=== PATIENT | female | born 1985 | race African-American/Black ===

== ENCOUNTER 2023-12-17 16:22 | Emergency (ER) | payer BC, SELFPAY ==
--- NOTE | ~2023-12-17 | US_ITS ---
EXAMINATION: US OB transvaginal INDICATION: abdominal pain TECHNIQUE: Sonography of the pelvis was performed by transabdominal and transvaginal techniques. COMPARISON: None. RESULT: Uterus: 9.5 x 4.4 x 6.1 cm. Anteverted. 2.2 cm inferior fibroids to the left of midline. Intrauterine gestational sac: Single present. Yolk sac: 0.26 cm . Embryo: Single present. [place] rump length: 0.22 cm, corresponding gestational age 5 weeks, 5 days. Gestational heart rate: present 103 bpm. Subgestational hematoma: Absent . Right ovary: 2.9 x 2.4 x 2.4 cm. Vascular flow is present. Corpus luteal cyst. Left ovary: 2.5 x 1.5 x 1.6 cm. Vascular flow is present. No adnexal mass. Pelvis free fluid: None. IMPRESSION: Single, live intrauterine gestation. Estimated Gestational Age: 5 weeks, 5 days by crown rump length. NATHAN by ultrasound 08/13/2024. Reviewed, dictated and finalized at location [facility]. IMPRESSION: Single, live intrauterine gestation. Estimated Gestational Age: 5 weeks, 5 days by crown rump length. NATHAN by ultras ound 08/13/2024.
[2023-12-17 16:45] VITALS: BP 116/77; PULSE 75; RESP 16; TEMP 37.2; O2SAT 100
--- NOTE | 2023-12-17 17:59 | ED.ABDPAIN ---
HPI - Abdominal Pain General Chief Complaint: Abdominal Pain Stated Complaint: constipation Time Seen by Provider: 12/17/23 17:42 History of Present Illness HPI narrative: Patient is a 38-year-old female, last menstrual period November 09, 2023 here with abdominal pain and bloating. She notes that her pain began about 4 days ago. She states that throughout the weekend she has been in bed due to increasing abdominal pain. She states it comes in waves and makes her bend over due to the pain. She has had decreased appetite all weekend and stayed in bed for most of the day. She denies any fever chills. Her last bowel movement was about 4 days ago. She notes she typically has 2-3 bowel movements each week. Normal she has not taken any medication to help with bowel movements. She denies any vaginal bleeding or discharge. She is unsure what her blood type is. She does note that during prior pregnancies she has had vaginal bleeding similar to a menstrual cycle so she is unsure of how far along she may be. No urinary symptoms. Related Data Allergies Allergy/AdvReac Type Severity Reaction Status Date / Time No Known Allergies Allergy Verified 12/17/23 16:46 Review of Systems Review of Systems: All systems reviewed & are unremarkable except as noted in HPI and below Exam Narrative: GENERAL: Well-appearing, well-nourished, and in no acute distress. HEAD: Normocephalic, atraumatic. EYES: PERRLA and EOMI. ENT: Nares clear. Mucous membranes moist. NECK: Supple. CHEST: Clear to auscultation. No respiratory distress. HEART: Regular rate and rhythm. Normal peripheral pulses. ABDOMEN: Soft, suprapubic tenderness, no rebound or guarding. No CVA tenderness. EXTREMITIES: Normal range of motion. No edema. SKIN: Warm, dry, no rash. NEURO: No focal deficits. Alert and oriented x3. PSYCH: Normal mood and affect. Course Course Emergency Course: Chart review performed. Patient here with constipation and abdominal pain. Last BM Saturday. Triage vitals normal. No prior visits. Patient seen evaluated, nontoxic appearing. Complaining of some abdominal pains and decreased appetite over the weekend. Her last bowel movement was about 4 days ago. She does have a positive test. Will add on hCG as well as transvaginal ultrasound and type and screen to evaluate RH factor. She does not have prior type and screen in our system. Ultrasound ordered to rule out ectopic , ultrasound team notified. HCG 40,578, gonorrhea, chlamydia, Trichomonas negative. UA negative for UTI. Ultrasound shows a single live intrauterine gestation estimated age 5 weeks and 5 days by crown-rump length. Patient is blood type B positive. Will start patient on vitamins and MiraLax. The results of pertinent diagnostic studies and exam findings were discussed. The patient?s provisional diagnosis and plan of care were discussed with the patient and present family. The patient and/or present family expressed understanding of the diagnosis and plan. The nurse was instructed to provide written instructions and appropriate follow-up information. The patient understands their need and responsibility to obtain additional follow-up as instructed. The risks of medications administered and prescribed were discussed with the patient and family present. Vital Signs Vital signs: Vital Signs Temperature 99 F 12/17/23 16:45 Pulse Rate 75 12/17/23 16:45 Respiratory Rate 16 12/17/23 16:45 Blood Pressure 116/77 12/17/23 16:45 Pulse Oximetry 100 12/17/23 16:45 Temperature 99 F 12/17/23 16:45 Pulse Rate 75 12/17/23 16:45 Respiratory Rate 16 12/17/23 16:45 Blood Pressure 116/77 12/17/23 16:45 Pulse Oximetry 100 12/17/23 16:45 MDM - Abdominal Pain Lab Data 12/17/23 17:54 12/17/23 17:54 Labs: Lab Results 12/17/23 12/17/23 12/17/23 Range/Units 17:54 17:54 20:08 WBC 6.4 (4.5-10.0) K/
[2023-12-17 18:02] LABS: Basophils Percent Auto 0.5 % (0.2-1.2); Eosinophils Absolute Auto 0.1 K/mm3 (0-0.3); Eosinophils Percent Auto 0.8 % (0-4.4); Hematocrit 37.3 % (37.0-47.0); Hemoglobin 11.6 g/dL (12.0-15.0); Immature Granulocyte Absolute 0.02 K/mm3 (0.00-0.031); Immature Granulocyte Percent A 0.3 % (0-0.5); Lymphocytes Absolute Auto 2.91 K/mm3 (0.9-3.2); Lymphocytes Percent Auto 45.7 % (18.3-44.2); Mean Corpuscular HGB Conc 31.1 g/dl (32-36); Mean Corpuscular Hemoglobin 23.7 pg (26-34); Mean Corpuscular Volume 76.3 fl (80-100); Mean Platelet Volume 10.2 fl (7.4-10.4); Monocytes Absolute Auto 0.4 K/mm3 (0.1-0.6); Monocytes Percent Auto 6.8 % (2.6-8.5); Neutrophils Absolute Auto 2.9 K/mm3 (1.3-6.7); Neutrophils Percent Auto 45.9 % (45.5-73.1); Platelet Count Result 271 k/mm3 (150-375); Red Blood Count 4.89 M/mm3 (4.2-5.4); Red Cell Distribution Width 15.4 % (11.5-14.5); White Blood Count 6.4 K/mm3 (4.5-10.0)
[2023-12-17 18:04] LABS: Appearance Urine Clear (Clear); Bilirubin Urine Negative (Negative); Blood Urine Negative (Negative); Color Urine Yellow (Yellow); Glucose Urine UA Negative (Negative); Ketones Urine Trace mg/dL (Negative); Leukocyte Esterase Ur Negative LEU/UL (Negative); Nitrate Urine Negative (Negative); Protein Urine Negative (Negative); Specific Grav Ur 1.027 (1.001-1.035)
[2023-12-17 18:10] LABS: Add Urine Microscopic? NO
[2023-12-17 18:14] LABS: Alanine Aminotransferase 16 U/L (6-35); Albumin Level 4.5 g/dL (3.5-5.1); Alkaline Phosphatase 36 U/L (38-126); Anion Gap 8 mmol/L (4-12); Aspartate Amino Transferase 30 U/L (14-36); Bilirubin,Total 0.7 mg/dL (0.2-1.3); Blood Urea Nitrogen 6 mg/dL (7-17); Calcium 9.2 mg/dL (8.4-10.2); Carbon Dioxide 21 mmol/L (22-30); Chloride 110 mmol/L (98-107); Estimated CRCL calculation 95 ml/min; Estimated Glomerular Filt Rate > 60; Glucose 83 mg/dL (65-110); Lipase 70 U/L (23-300); Potassium 3.9 mmol/L (3.4-5.0); Sodium 139 mmol/L (137-145)
--- NOTE | 2023-12-17 19:26 | PC.NURSE ---
pt in ultrasound at this time.
[2023-12-17 20:35] LABS: Trichomonas Vag PCR NOT DETECTED (NOT DETECTE)
[2023-12-17 20:59] LABS: Chlamydia trachomatis NOT DETECTED (NOT DETECTE); Neisseria gonorrhoeae PCR NOT DETECTED (NOT DETECTE)
== END 2023-12-17 21:16 | disposition home or self-care (01) ==
PROVIDERS: Emergency Medicine; Emergency Provider Student in an Organized Health Care Education/Training Program
DX: O99.611 Diseases of the digestive system complicating pregnancy, first trimester (principal); K59.00 Constipation, unspecified; O09.521 Supervision of elderly multigravida, first trimester; Z3A.01 Less than 8 weeks gestation of pregnancy
CPT/HCPCS: 36415; 76817; 80053; 81003; 81025; 83690; 84702; 85025; 86850; 86900; 86901; 87491; 87591; 87661; 99284

== ENCOUNTER 2024-06-23 22:00 | Emergency (ER) | payer BC, SELFPAY ==
[2024-06-23 22:02] VITALS: BP 107/62; PULSE 75; RESP 16; TEMP 36.6; O2SAT 100
[2024-06-24 00:30] LABS: BEDSIDEPREGUCG Positive (Negative)
--- NOTE | 2024-06-24 00:55 | ED.FEMALEGU ---
HPI - Female Genitourinary General Chief complaint: Urogenital-Female Stated complaint: pressure with urinating suspected UTI Time Seen by Provider: 06/24/24 00:21 Source: patient Mode of arrival: ambulatory Limitations: no limitations History of Present Illness HPI Narrative: This is a 39-year-old female that presents to the emergency department for dysuria. Ongoing since yesterday. Reports urinary frequency. Denies fevers, flank pain, hematuria, vomiting. Related Data Allergies Allergy/AdvReac Type Severity Reaction Status Date / Time No Known Allergies Allergy Verified 06/23/24 22:01 Review of Systems Review of Systems: CONSTITUTIONAL: Denies fever, GASTROINTESTINAL: Denies abdominal pain, nausea, vomiting GENITOURINARY: Reports dysuria. Denies hematuria. All systems reviewed & are unremarkable except as noted in HPI and below PMFSH Past Medical History Medical History (Updated 06/24/24 @ 02:24 by Yanira Mora PA-C) No active medical problems Social History Social History (Updated 06/24/24 @ 00:57 by Yanira Mora PA-C) Smoking status: Never smoker Exam Narrative: GENERAL: Well-appearing, well-nourished, and in no acute distress. HEAD: Normocephalic, atraumatic. EYES: EOMI. CHEST: Clear to auscultation. No respiratory distress. No wheezes rales or rhonchi HEART: Regular rate and rhythm. No murmur heard. Normal peripheral pulses. ABDOMEN: Soft, nontender, nondistended, normal active bowel sounds. EXTREMITIES: Normal range of motion. No edema. SKIN: Warm, dry, no rash. NEURO: No focal deficits. Alert and oriented x3. PSYCH: Normal mood and affect Course Course Emergency Course: Patient updated on her workup and agrees with plan of care Vital Signs Vital signs: Vital Signs Temperature 98 F 06/23/24 22:02 Pulse Rate 75 06/23/24 22:02 Respiratory Rate 16 06/23/24 22:02 Blood Pressure 107/62 06/23/24 22:02 Pulse Oximetry 100 06/23/24 22:02 Oxygen Delivery Room Air 06/23/24 22:02 Temperature 98 F 06/23/24 22:02 Pulse Rate 75 06/23/24 22:02 Respiratory Rate 16 06/23/24 22:02 Blood Pressure 107/62 06/23/24 22:02 Pulse Oximetry 100 06/23/24 22:02 Oxygen Delivery Room Air 06/23/24 22:02 MDM - Female Genitourinary MDM Narrative Medical decision making narrative: Patient presents to the emergency department for dysuria. She is afebrile and nontoxic appearing. Denies any fevers or flank pain. UA is consistent with infection. Will be started on oral antibiotics. Sent for culture. Patient's test came back positive. She did not previously know she was . Unsure of her LMP. Quantitative beta hCG 11,738. Patient instructed to have further follow-up with her OB. She was given warnings to return to the ER Differential Diagnosis Differential diagnosis: Likely cystitis and other () Lab Data Attestation: I reviewed the patient's lab results. Labs: Lab Results 06/24/24 06/24/24 06/24/24 Range/Units 00:21 00:28 00:35 Beta HCG, Quant 84665.00 mIU/ML Urine Color Yellow (Yellow) Urine Appearance Cloudy H (Clear) Urine pH 6.5 (5.0-9.0) Ur Specific Rough And Ready 1.025 (1.001-1.035) Urine Protein 2+ H (Negative) mg/dL Urine Glucose (UA) Negative (Negative) mg/dL Urine Ketones 1+ H (Negative) mg/dL Ur Blood (Man) 2+ H (Negative) Urine Nitrate Positive H (Negative) Urine Bilirubin Negative (Negative) Urine Urobilinogen 1.0 (<2.0) mg/dL Add Ur Microanalysis Reviewed Leukocyte Esterase Rfl 3+ H (Negative) LIU/UL Urine RBC 6-10 H (0-2) /hpf Urine WBC >100 H (0-3) /hpf Ur Squamous Epith Cells Occasional (Few) /hpf Urine Bacteria 4+ H /hpf Urine Casts 3-5 Urine Mucus Present /lpf POC Urine HCG, Qual Positive (Negative) Critical Care Time Critical Care Time Critical Care Time: No Discharge Plan Discharge Clinical Impression: Acute UTI Qualifiers: Weeks of gestation: unspecified Qualified Code(s): Z34.90 - Encounter for supervision of normal , unspecified, unspecified trimester Patient Disposition: Home, Self-Care Condition: Stable Instructions: Antibiotic Form, (ED), Urinary Tract Infection in (ED) Additional Instructions: Return to the ER if you experience fever, chest pain, shortness of breath, abdominal pain with nausea and vomiting, you are unable to keep down liquids or solids, pelvic cramping, vaginal bleeding, or any other symptoms that are concerning to you Take oral antibiotics as prescribed Follow up with your OB Prescriptions: New cephalexin 500 mg capsule 500 mg PO Q12H 5 Days Qty: 10 0RF No Action PNV [id number]-FA [ Multivitamins] 28 mg iron- 800 mcg tablet 1 tablet PO DAILY Qty: 60 0RF polyethylene glycol 3350 [Miralax] 17 gram powder in packet 17 g PO BID Qty: 30 0RF Follow-up/Referrals: PHYSICIAN NOT ON STAFF,NONSTAFF [Primary Care Provider] -
[2024-06-24 01:03] LABS: Add Urine Microscopic? YES; Appearance Urine Cloudy (Clear); Bacteria Urine 4+ /hpf; Bilirubin Urine Negative (Negative); Blood Urine 2+ (Negative); Color Urine Yellow (Yellow); Glucose Urine UA Negative (Negative); Ketones Urine 1+ mg/dL (Negative); Leukocyte Esterase Ur 3+ LEU/UL (Negative); Mucus Urine Present /lpf; Need Manual Microscopic Reviewed; Nitrate Urine Positive (Negative); Protein Urine 2+ mg/dL (Negative); Specific Grav Ur 1.025 (1.001-1.035); Squamous Epithelial Cell Urine Occasional /hpf (Few); WBC Urine >100 /hpf (0-3); pH Urine 6.5 (5.0-9.0)
[2024-06-24] MEDS: CEPHALEXIN 500 MG CAPSULE PO (02:29)
[2024-06-24 02:33] VITALS: BP 133/65; PULSE 77; RESP 18; O2SAT 99
== END 2024-06-24 02:35 | disposition home or self-care (01) ==
PROVIDERS: Emergency Medicine; Emergency Provider Physician Assistant
DX: O23.40 Unspecified infection of urinary tract in pregnancy, unspecified trimester (principal); N39.0 Urinary tract infection, site not specified; Z3A.00 Weeks of gestation of pregnancy not specified
CPT/HCPCS: 36415; 81001; 81025; 84702; 87077; 87086; 87186; 99283; A9270